=== PATIENT | male | born 1935 ===

== ENCOUNTER 2020-08-20 13:47 | Inpatient (IN) ==
[2020-08-20] MEDS: Apixaban 5 MG TABLET PO SCH (23:28)
[2020-08-20] MEDS: Doxycycline 100 MG CAPSULE PO SCH (23:28)
[2020-08-21] MEDS: Ipratropium/Albuterol Neb 3 ML IH SCH ×4 (04:31→21:50)
[2020-08-21 06:15] LABS: Basophils % 0.3 %; Eosinophils # 0.1 K/mcL (0.0-0.6); Hematocrit 39.1 % (37.5-50.1); Hemoglobin 12.3 g/dL (12.9-16.9); Immature Granulocytes % 0.9 % (0-4); Lymphocytes # 1.6 K/mcL (0.6-4.6); Lymphocytes % 23.9 %; Mean Corpuscular HGB Conc 31.5 g/dL (31.6-35.5); Mean Corpuscular Hemoglobin 29.6 pg (28.0-33.3); Mean Platelet Volume 10.4 fL (9.4-12.4); Monocytes # 0.6 K/mcL (0.0-1.3); Monocytes % 8.1 %; Neutrophils # 4.4 K/mcL (1.6-8.9); Platelet Count 178 K/mcL (140-400); Red Blood Count 4.16 M/mcL (4.19-5.50); Red Cell Distribution Width 17.2 % (11.5-14.5); Segmented Neutrophils % 65.8 %; White Blood Count 6.8 K/mcL (4.3-11.1)
[2020-08-21 06:26] LABS: BUN/Creatinine Ratio 33 (6-26); Blood Urea Nitrogen 44 mg/dL (8-23); Calcium 9.3 mg/dL (8.6-10.3); Carbon Dioxide 30 mEq/L (23-29); Chloride 105 mEq/L (98-107); Glucose 108 mg/dL (70-105); Osmolality,Calculated 304 (280-300); Potassium 3.8 mEq/L (3.5-5.1); Sodium 141 mEq/L (136-145); eGFR For African Americans > 60 (> 60); eGFR For Non-African Americans 50 (> 60)
[2020-08-21] MEDS: carvediloL 6.25 MG TABLET PO SCH ×2 (09:02→16:44)
[2020-08-21] MEDS: Doxycycline 100 MG CAPSULE PO SCH ×2 (09:02→21:22)
[2020-08-21] MEDS: Cholecalciferol (D-3) 1,000 UNIT (25MCG) TABLET PO SCH (09:03)
[2020-08-21] MEDS: Apixaban 5 MG TABLET PO SCH ×2 (09:03→21:22)
[2020-08-21] MEDS: predniSONE 20 MG TABLET PO SCH (09:03)
[2020-08-21] MEDS: Furosemide 40 MG TABLET PO SCH (09:03)
[2020-08-21] MEDS: Aspirin Enteric Coated 81 MG Tablet PO SCH (09:03)
[2020-08-21] MEDS: Budesonide/Formoterol 160/4.5 1 PUFF INH IH SCH ×2 (10:16→21:50)
[2020-08-22] MEDS: Ipratropium/Albuterol Neb 3 ML IH SCH ×4 (04:17→21:19)
[2020-08-22] MEDS: Budesonide/Formoterol 160/4.5 1 PUFF INH IH SCH ×2 (09:25→21:15)
[2020-08-22] MEDS: Cholecalciferol (D-3) 1,000 UNIT (25MCG) TABLET PO SCH (09:36)
[2020-08-22] MEDS: Aspirin Enteric Coated 81 MG Tablet PO SCH (09:37)
[2020-08-22] MEDS: Doxycycline 100 MG CAPSULE PO SCH ×2 (09:37→20:24)
[2020-08-22] MEDS: Apixaban 5 MG TABLET PO SCH ×2 (09:37→20:24)
[2020-08-22] MEDS: carvediloL 6.25 MG TABLET PO SCH ×2 (09:38→16:55)
[2020-08-22] MEDS: Furosemide 40 MG TABLET PO SCH (09:38)
[2020-08-22] MEDS: predniSONE 20 MG TABLET PO SCH (09:38)
[2020-08-23] MEDS: Ipratropium/Albuterol Neb 3 ML IH SCH ×2 (04:00→09:22)
[2020-08-23 07:14] VITALS: BP 169/89
[2020-08-23] MEDS: Cholecalciferol (D-3) 1,000 UNIT (25MCG) TABLET PO SCH (08:05)
[2020-08-23] MEDS: carvediloL 6.25 MG TABLET PO SCH (08:05)
[2020-08-23] MEDS: Aspirin Enteric Coated 81 MG Tablet PO SCH (08:05)
[2020-08-23] MEDS: Apixaban 5 MG TABLET PO SCH (08:05)
[2020-08-23] MEDS: Doxycycline 100 MG CAPSULE PO SCH (08:05)
[2020-08-23] MEDS: Furosemide 40 MG TABLET PO SCH (08:06)
[2020-08-23] MEDS ORDERED: predniSONE 10 MG TABLET PO SCH (09:00)
[2020-08-23] MEDS: Budesonide/Formoterol 160/4.5 1 PUFF INH IH SCH (09:14)
[2020-08-25] MEDS ORDERED: predniSONE 20 MG TABLET PO SCH (09:00)
[2020-08-27] MEDS ORDERED: predniSONE 10 MG TABLET PO SCH (09:00)
== END 2020-08-23 15:00 | disposition home health service (06) | DRG 945 ==
LOC: INPGRE 21:18
PROVIDERS: ADMIT Family Medicine; ATTEND Family Medicine